=== PATIENT | male | born 1965 | race Caucasian/White ===

== ENCOUNTER 2019-01-25 08:57 | Emergency (ER) | payer SELFPAY ==
[~2019-01-25] VITALS: Ht 188 cm; Wt 118.2 kg
[2019-01-25 09:02] VITALS: BP 157/92; PULSE 80; TEMP 97.1
[2019-01-25] MEDS ORDERED: CRUTCHES MC (09:39)
== END 2019-01-25 10:00 | disposition home or self-care (01) ==
LOC: COL.ER 08:57
DX: S86.011A Strain of right Achilles tendon, initial encounter (principal); X50.0XXA Overexertion from strenuous movement or load, initial encounter; Y92.59 Other trade areas as the place of occurrence of the external cause

== ENCOUNTER → 2019-02-15 | Outpatient (CLI) | payer BC ==
[~2019-02-15] MED LIST: CRUTCHES MC
== END ==
LOC: ZCOL.LAB 16:26
DX: Z87.39 Personal history of other diseases of the musculoskeletal system and connective tissue (principal)

== ENCOUNTER 2019-04-05 13:45 | Outpatient (RCR) | payer OTHER | END 2019-06-02 18:16 | disposition home or self-care (01) | LOC: WSPT 13:45 | DX: S86.011A Strain of right Achilles tendon, initial encounter (principal) ==

== ENCOUNTER 2019-04-05 14:11 | Outpatient (RCR) | payer OTHER | END 2019-05-02 | disposition home or self-care (01) | LOC: WSOH | DX: S86.011A Strain of right Achilles tendon, initial encounter (principal); M10.00 Idiopathic gout, unspecified site; W18.40XA Slipping, tripping and stumbling without falling, unspecified, initial encounter; Y92.811 Bus as the place of occurrence of the external cause; Y99.0 Civilian activity done for income or pay | CPT/HCPCS: 24774; L1810 ==